=== PATIENT | male | born 1990 | race African-American/Black ===

== ENCOUNTER 2018-12-14 16:45 | Emergency (ER) | payer OTHER ==
[2018-12-14 16:50] VITALS: BP 139/77
[2018-12-14] MEDS ORDERED: IBUPROFEN 600 MG TABLET PO ONE (18:03)
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
== END 2018-12-14 19:44 | disposition home or self-care (01) ==
LOC: ER 16:45
DX: M94.0 Chondrocostal junction syndrome [Tietze] (principal); M62.838 Other muscle spasm; R07.81 Pleurodynia; V49.60XA Unspecified car occupant injured in collision with unspecified motor vehicles in traffic accident, initial encounter; F17.200 Nicotine dependence, unspecified, uncomplicated
CPT/HCPCS: 72050; 99283

== ENCOUNTER → 2019-08-16 | Outpatient (CLI) | payer SELFPAY | LOC: OD 13:59 | PROVIDERS: ATTEND Nurse Practitioner Family | DX: D57.1 Sickle-cell disease without crisis (principal) | CPT/HCPCS: 36415; 85660 ==